=== PATIENT | male | born 1980 | race Caucasian/White ===

== ENCOUNTER 2020-04-03 09:34 | Emergency (ER) | payer OTHER ==
[~2020-04-03] VITALS: Ht 180.3 cm; Wt 88.5 kg
[2020-04-03] MEDS ORDERED: AMOX-CLAV 875-1 EACH PO (12:37)
[2020-04-03] MEDS ORDERED: INTESTINEX680 M2 PO (12:37)
== END 2020-04-03 12:45 | disposition home or self-care (01) ==
LOC: ER 09:34
DX: J31.2 Chronic pharyngitis (principal)

== ENCOUNTER 2020-04-03 18:04 | Emergency (ER) | payer OTHER ==
[~2020-04-03] VITALS: Ht 180.3 cm; Wt 88.5 kg
[~2020-04-03 18:04] MED LIST: AMOX-CLAV 875-1 EACH PO; INTESTINEX680 M2 PO
== END 2020-04-03 22:05 | disposition home or self-care (01) ==
LOC: ER 18:04
DX: J35.01 Chronic tonsillitis (principal); Z03.818 Encounter for observation for suspected exposure to other biological agents ruled out

== ENCOUNTER 2020-04-06 17:33 | Emergency (ER) | payer OTHER ==
[~2020-04-06] VITALS: Ht 180.3 cm; Wt 83.9 kg
[2020-04-06] MEDS ORDERED: TYLENOL325 MG (18:15)
== END 2020-04-06 20:21 | disposition home or self-care (01) ==
LOC: ER 17:33
DX: B27.80 Other infectious mononucleosis without complication (principal)